=== PATIENT | female | born 1990 | race Two or more races ===

== ENCOUNTER 2020-07-31 17:31 | Inpatient (IN) ==
[2020-07-31] MEDS ORDERED: PITOCIN IVP ONE (17:38)
[2020-07-31] MEDS ORDERED: D5LR 1L W PITOCIN 10 UNITS/L 10 UNITS/1,000 ML BAG IV PRN (17:38)
[2020-07-31] MEDS ORDERED: PHENERGAN INJ 25 MG IM PRN ×2 (17:38→20:16)
[2020-07-31] MEDS ORDERED: REGLAN INJ 10 MG VIAL IVP PRN (17:38)
[2020-07-31] MEDS ORDERED: D5 1/2 NS 1L W PITOCIN 20 UNITS/L 20 UNITS/1,000 ML BAG IV ONE (17:40)
[2020-07-31] MEDS ORDERED: STADOL INJ IVP PRN (17:40)
[2020-07-31] MEDS ORDERED: BETADINE SOLN ONE (17:40)
[2020-07-31] MEDS ORDERED: D5 1/2 NS 1000 ML 1,000 ML IV SCH (18:00)
[2020-07-31 18:05] LABS: BILIRUBIN,URINE NEGATIVE (NEGATIVE); BLOOD/HEMOGLOBIN,URINE 1+ (NEGATIVE); GLUCOSE, URINE NEGATIVE (NEGATIVE); KETONES,URINE 3+ (NEGATIVE); LEUKOCYTE ESTERASE ,URINE 1+ (NEGATIVE); NITRITES,URINE NEGATIVE (NEGATIVE); PROTEIN,URINE NEGATIVE (NEGATIVE); UROBILINOGEN,URINE NORMAL (NORMAL)
[2020-07-31 18:21] LABS: BASOPHILS # (AUTO) 0.1 X10^3/uL (0.0-0.1); BASOPHILS % (AUTO) 1.3 % (0.2-1.0); EOSINOPHILS % (AUTO) 0.3 % (0.9-2.9); HEMATOCRIT 36.9 % (36.0-47.0); HEMOGLOBIN 12.2 g/dL (12.0-16.0); LYMPHOCYTES # (AUTO) 2.4 X10^3/uL (1.3-2.9); LYMPHOCYTES % (AUTO) 25.1 % (21.0-51.0); MEAN CORPUSCULAR HEMOGLOBIN 30.5 pg (27.0-34.0); MEAN CORPUSCULAR VOLUME 92.4 fL (80.0-100.0); MEAN PLATELET VOLUME 8.6 fL (7.4-11.0); MONOCYTES # (AUTO) 0.7 x10^3/uL (0.3-0.8); MONOCYTES % (AUTO) 7.7 % (0.0-13.0); NEUTROPHILS # (AUTO) 6.2 x10^3/uL (2.2-4.8); NEUTROPHILS % (AUTO) 65.6 % (42.0-75.0); PLATELET COUNT 257 X10^3/uL (150.0-450.0); RED CELL DISTRIBUTION WIDTH 14.9 % (11.6-16.5); WHITE BLOOD COUNT 9.5 X10^3/uL (3.6-10.0)
[2020-07-31 18:24] LABS: BLOOD UREA NITROGEN 7 mg/dL (7-18); CALCIUM 9.1 mg/dL (8.5-10.1); CARBON DIOXIDE 19.3 mmol/L (21-32); CHLORIDE 102 mmol/L (98-107); CREATININE 0.49 mg/dL (0.55-1.02); SODIUM 136 mmol/L (136-145); eGFR NON BLACK RACES > 60 (>60)
[2020-07-31 18:44] LABS: APPEARANCE,URINE CLEAR (CLEAR); COLOR,URINE YELLOW (YELLOW)
[2020-07-31 18:45] LABS: BACTERIA,URINE NEGATIVE /HPF (NEGATIVE); RBC,URINE 0-2 /HPF (0-3); SQUAMOUS EPITHELIAL CELL,UR MODERATE /HPF (NEGATIVE)
[2020-07-31] MEDS ORDERED: XYLOCAINE 2 % (PLAIN) ONE (20:03)
[2020-07-31] MEDS ORDERED: D5 1/2 NS 1000 ML 1,000 ML with PITOCIN 20 UNITS IV SCH ×2 (21:00)
[2020-07-31] MEDS ORDERED: ADACEL or BOOSTRIX TDaP VACCINE IM ONE (21:12)
[2020-07-31] MEDS ORDERED: AMBIEN PO PRN (21:12)
[2020-07-31] MEDS ORDERED: MILK OF MAGNESIA PO PRN (21:12)
[2020-07-31] MEDS ORDERED: DERMOPLAST PAIN RELIEF SPRAY TOP PRN (21:12)
[2020-07-31] MEDS: MOTRIN TAB 800 MG PO PRN (23:20)
[2020-08-01 06:11] LABS: HEMOGLOBIN 10.3 g/dL (12.0-16.0)
[2020-08-01] MEDS: PRENATAL PLUS PO SCH (08:50)
[2020-08-02] MEDS: PRENATAL PLUS PO SCH (08:16)
[2020-08-02] MEDS: MOTRIN TAB 800 MG PO PRN (08:17)
[2020-08-02 12:57] VITALS: BP 140/95
== END 2020-08-02 13:30 | disposition home or self-care (01) | DRG 807 ==
LOC: LD 17:31 → MED/SURG 21:03
PROVIDERS: ADMIT Obstetrics & Gynecology Obstetrics; ATTEND Obstetrics & Gynecology Obstetrics
DX: O26.893 Other specified pregnancy related conditions, third trimester; O70.1 Second degree perineal laceration during delivery; Z20.828 Contact with and (suspected) exposure to other viral communicable diseases; Z3A.41 41 weeks gestation of pregnancy; Z37.0 Single live birth; Z01.812 Encounter for preprocedural laboratory examination

== ENCOUNTER 2023-05-28 11:04 | Inpatient (IN) ==
[2023-05-28] MEDS ORDERED: LR 1,000 ML IV 1,000 ML IV SCH ×2 (11:05→12:00)
[2023-05-28] MEDS ORDERED: PITOCIN IVP ONE (11:05)
[2023-05-28] MEDS ORDERED: D5 LR + PITOCIN 10 UNITS/L 10 UNITS/1,000 ML BAG IV PRN (11:05)
[2023-05-28] MEDS ORDERED: ZOFRAN INJ 4 MG VIAL IVP PRN (11:05)
[2023-05-28] MEDS ORDERED: NUBAIN INJ 20 MG AMP IVP PRN (11:05)
[2023-05-28 11:28] LABS: BILIRUBIN,URINE NEGATIVE (NEGATIVE); BLOOD/HEMOGLOBIN,URINE 4+ (NEGATIVE); GLUCOSE, URINE NEGATIVE (NEGATIVE); KETONES,URINE NEGATIVE (NEGATIVE); LEUKOCYTE ESTERASE ,URINE NEGATIVE (NEGATIVE); NITRITES,URINE NEGATIVE (NEGATIVE); PROTEIN,URINE 2+ (NEGATIVE); UROBILINOGEN,URINE NORMAL (NORMAL)
[2023-05-28 11:41] LABS: APPEARANCE,URINE CLEAR (CLEAR); COLOR,URINE YELLOW (YELLOW)
[2023-05-28 11:41] LABS: BASOPHILS # (AUTO) 0.1 X10^3/uL (0.0-0.1); BASOPHILS % (AUTO) 1.3 % (0.2-1.0); EOSINOPHILS % (AUTO) 0.3 % (0.9-2.9); HEMATOCRIT 34.2 % (36.0-47.0); HEMOGLOBIN 11.3 g/dL (12.0-16.0); LYMPHOCYTES # (AUTO) 2.2 X10^3/uL (1.3-2.9); LYMPHOCYTES % (AUTO) 23.7 % (21.0-51.0); MEAN CORPUSCULAR HEMOGLOBIN 29.4 pg (27.0-34.0); MEAN CORPUSCULAR VOLUME 89.2 fL (80.0-100.0); MEAN PLATELET VOLUME 9.7 fL (7.4-11.0); MONOCYTES # (AUTO) 0.8 x10^3/uL (0.3-0.8); MONOCYTES % (AUTO) 8.8 % (0.0-13.0); NEUTROPHILS # (AUTO) 6.2 x10^3/uL (2.2-4.8); NEUTROPHILS % (AUTO) 65.9 % (42.0-75.0); PLATELET COUNT 252 X10^3/uL (150.0-450.0); RED BLOOD COUNT 3.83 X10^6/uL (3.5-5.4); RED CELL DISTRIBUTION WIDTH 15.7 % (11.6-16.5); WHITE BLOOD COUNT 9.4 X10^3/uL (3.6-10.0)
[2023-05-28 11:42] LABS: BACTERIA,URINE TRACE /HPF (NEGATIVE); SQUAMOUS EPITHELIAL CELL,UR FEW /HPF (NEGATIVE); YEAST,URINE RARE /HPF (NEGATIVE)
[2023-05-28] MEDS ORDERED: PITOCIN ONE (11:42)
[2023-05-28] MEDS ORDERED: BETADINE SOLN ONE (11:42)
[2023-05-28] MEDS ORDERED: D5 1/2 NS 1,000 ML 1,000 ML IV ONE (11:42)
[2023-05-28] MEDS ORDERED: D5 1/2 NS 1,000 mL + PITOCIN 20 UNITS/L IV 20 UNITS/1,000 ML BAG IV ONE (11:43)
[2023-05-28] MEDS ORDERED: D5 LR + PITOCIN 10 UNITS/L 10 UNITS/1,000 ML BAG IV ONE (11:43)
[2023-05-28 11:49] LABS: BLOOD UREA NITROGEN 7 mg/dL (7-18); CALCIUM 8.4 mg/dL (8.5-10.1); CHLORIDE 101 mmol/L (98-107); CREATININE 0.47 mg/dL (0.55-1.02); GLUCOSE 79 mg/dL (65-99); POTASSIUM 3.7 mmol/L (3.5-5.1); SODIUM 133 mmol/L (136-145); eGFR NON BLACK RACES > 60 (>60)
[2023-05-28] MEDS ORDERED: XYLOCAINE 1 % (PLAIN) ONE (15:00)
[2023-05-28] MEDS ORDERED: D5 1/2 NS 1,000 ML 1,000 ML with PITOCIN 20 UNITS IV SCH ×2 (16:00)
[2023-05-28] MEDS ORDERED: MILK OF MAGNESIA PO PRN (16:03)
[2023-05-28] MEDS ORDERED: DERMOPLAST PAIN RELIEF SPRAY TOP PRN (16:03)
[2023-05-28] MEDS ORDERED: AMBIEN PO PRN (16:03)
[2023-05-28] MEDS: MOTRIN TAB 800 MG PO PRN (17:55)
[2023-05-29 05:34] LABS: HEMATOCRIT 27.6 % (36.0-47.0)
[2023-05-29 05:42] LABS: HEMOGLOBIN 9.1 g/dL (12.0-16.0)
[2023-05-29] MEDS: PRENATAL PLUS PO SCH (09:30)
[2023-05-29] MEDS: MOTRIN TAB 800 MG PO PRN (19:34)
[2023-05-30 00:11] VITALS: RESP 20
[2023-05-30 04:16] VITALS: BP 133/79; PULSE 61; TEMP 98.2; O2SAT 99
[2023-05-30] MEDS: PRENATAL PLUS PO SCH (08:55)
== END 2023-05-30 09:45 | disposition home or self-care (01) | DRG 807 ==
LOC: LD 11:04 → MED/SURG 15:56
PROVIDERS: ADMIT Obstetrics & Gynecology Obstetrics; ATTEND Obstetrics & Gynecology Obstetrics
DX: Z3A.39 39 weeks gestation of pregnancy; O70.1 Second degree perineal laceration during delivery; Z37.0 Single live birth; O26.893 Other specified pregnancy related conditions, third trimester